=== PATIENT | female | born 1955 | race Asian ===

== ENCOUNTER → 2018-03-09 | Outpatient (CLI) | payer MEDICARE, BC ==
[2018-03-09 11:50] LABS: MEAN CORPUSCULAR HEMOGLOBIN 30.5 pg (27.0-34.8); MEAN CORPUSCULAR HGB CONC 33.4 g/dL (32.4-35.8); MEAN CORPUSCULAR VOLUME 91.3 fL (80-100); MEAN PLATELET VOLUME 7.8 fL (7.4-10.4); PLATELET COUNT 213 x10^3/uL (130-400); RED BLOOD COUNT 4.79 x10^6/uL (3.82-5.3); RED CELL DISTRIBUTION WIDTH 13.2 % (9.6-15.2)
[2018-03-09 12:26] LABS: CHOL/HDL RATIO 3.2
[2018-03-09 12:27] LABS: LDL/HDL RATIO 1.7 (0.5-3.0); THYROID STIMULATING HORMONE 0.705 mIU/L (0.358-3.740)
== END | disposition home or self-care (01) ==
LOC: LAB 11:24
PROVIDERS: ATTEND Family Medicine
DX: E55.9 Vitamin D deficiency, unspecified (principal); E78.5 Hyperlipidemia, unspecified; G25.81 Restless legs syndrome; R53.83 Other fatigue; R73.03 Prediabetes
CPT/HCPCS: 36415; 80061; 82306; 82607; 83036; 84443; 85027